=== PATIENT | female | born 1935 | race Caucasian/White ===

== ENCOUNTER 2017-02-16 08:16 | Emergency (ER) | payer MEDICARE ==
--- NOTE | 2017-02-16 08:28 | UC ---
Cardiac HPI - HPI Summary HPI Summary: 81 year old female presents with left sided chest pain radiating to her left arm. - History of Current Complaint Stated Complaint: CHEST/LEFT SHOULDER PAIN Time Seen by Provider: 02/16/17 08:24 Hx Obtained From: Patient Onset/Duration: Sudden Onset Initial Severity: Moderate Current Severity: Moderate - Allergy/Home Medications Allergies/Adverse Reactions: Allergies Allergy/AdvReac Type Severity Reaction Status Date / Time No Known Allergies Allergy Verified 02/16/17 08:18 PMH/Surg Hx/FS Hx/Imm Hx Previously Healthy: Yes - Surgical History Surgical History: Yes Surgery Procedure, Year, and Place: cholecystectomy. APPENDECTOMY - Social History Alcohol Use: None Substance Use Type: None Smoking Status (MU): Never Smoked Tobacco - Immunization History Most Recent Pneumonia Vaccination: 10/26/14 Review of Systems Constitutional: Negative Skin: Negative Eyes: Negative ENT: Negative Respiratory: Negative Cardiovascular: Chest Pain Gastrointestinal: Negative Genitourinary: Negative Motor: Negative Neurovascular: Negative Musculoskeletal: Negative Neurological: Negative Psychological: Negative All Other Systems Reviewed And Are Negative: Yes Physical Exam Triage Information Reviewed: Yes Vital Signs Reviewed: Yes Eye Exam: Normal ENT Exam: Normal Dental Exam: Normal Neck exam: Normal Neck: Positive: 1 Respiratory Exam: Normal Cardiovascular Exam: Normal Abdominal Exam: Normal Musculoskeletal Exam: Normal Neurological Exam: Normal Psychological Exam: Normal Skin Exam: Normal - Assessment/Plan Course Of Treatment: st depression inferior leads - Clinical Impression Provider Diagnoses: left sided chest pain Discharge - Discharge Plan Condition: Stable Disposition: OTHER Discharge Disposition Comment: patient suggested to go to the er Patient Education Materials: Chest Pain (ED) Referrals: Mago Herman MD [Primary Care Provider] - Additional Instructions: Patient suggested to go to ER.
[2017-02-16 08:29] VITALS: BP 168/65
[2017-02-16] MEDS ORDERED: Aspirin Low Dose CHEW TAB* 81 MG PO ONE (08:29)
[2017-02-16] MEDS ORDERED: Aspirin Low Dose CHEW TAB* 81 MG ONE (08:29)
== END 2017-02-16 08:36 ==
LOC: UCCORT 08:16
DX: R07.89 Other chest pain (principal); M25.512 Pain in left shoulder; Z90.49 Acquired absence of other specified parts of digestive tract
CPT/HCPCS: 93005; 99212; A9270-GY; G0463